=== PATIENT | male | born 1980 | race Caucasian/White ===

== ENCOUNTER 2024-10-18 09:20 | Outpatient (AMB) | payer OTHER, SELFPAY ==
--- NOTE | 2024-10-18 09:22 | A.OFFVIS_ITS ---
Intake Visit Reasons: bilateral vericocele/ epidid. cyst Intake Note: Patient is present for BILATERAL VERICOCELE/EPIDID CYST Urology Medication:NONE Antibiotic Allergy:NONE Blood Thinner:NONE Medical Record Retrieval Specialist Required: No Allergies No Known Allergies Allergy (Verified 10/18/24 09:23) HPI Comments Details: Lucho is a pleasant male. He is a patient Dr. Aranda. He is seen for the following urologic conditions - right epididymal cyst - weak urinary stream with chronic prostatitis Trial alfuzosin Plan right partial epididymectomy Lower urinary tract symptoms Background chronic prostatitis in his 20s Noticing urinary weakness of stream and urge Trial alpha-parveen Right epididymal cyst Ultrasound 2 cm cyst right epididymis with left varicocele Has intermittent pain with epididymal cyst Discomfort on examination with thickening of epididymal head Recommend excision Review of Systems Const Denies chills and Denies fever(s) Card Reports no additional complaints and Denies syncope Resp Denies cough GI Denies abdominal pain and Denies heartburn Reports as per HPI and Denies change in libido Neuro Denies syncope Psych Denies change in libido Endo Denies change in libido Physical Exam Const General: cooperative, healthy appearing, comfortable and no acute distress Orientation/consciousness: patient oriented x3 HEENT Face and sinus: Yes normal facial exam Mouth: moist mucous membranes Neck Neck: Yes normal visual inspection, Yes full ROM and Yes trachea midline Chest Chest palpation & inspection: normal inspection of the chest Resp Effort & Inspection: normal respiratory effort, able to speak in complete sentences and no respiratory distress GI Inspection: Yes normal to inspection Back/Spine/Pelvis Cervical Spine: normal cervical lordosis Thoracic/Lumbar Spine: thoracic and lumbar spine normal to inspection Skin General skin exam: no rashes or lesions noted Neuro General: patient oriented x3, gait normal, tone normal and moves all extremities Extrem General: Yes normal to inspection and Yes capillary refill normal Assessment & Plan Assessment & Plan (1) Epididymal cyst: Code(s): N50.3 - Cyst of epididymis Category: Medical (2) Weak urinary stream: Code(s): R39.12 - Poor urinary stream Category: Medical (3) Urinary urgency: Code(s): R39.15 - Urgency of urination Category: Medical (4) Chronic prostatitis: Code(s): N41.1 - Chronic prostatitis Category: Medical Plan Risks, benefits and alternatives to therapy were discussed. These include but are not limited to infection, bleeding, damage to local organs and tissues, need for further interventions. Anesthetic risks regarding cardiac arrhythmia, blood clots, and potential mortality were discussed. The patient understands the typical recovery time and the outpatient nature of the procedure. After consideration of these risks the patient gives full informed consent and they wish to move ahead with the procedure. Right epididymal cyst removal Medications: New alfuzosin ER 10 mg PO DAILY 30 days 30 tabs 1RF N41.1 - Chronic prostatitis Patient Instructions: This note is constructed using voice recognition software. While every effort has been made to ensure accuracy director of global talent errors may have been included. Imaging studies, laboratory and physical exam results were discussed and reviewed in detail. No major barriers to patient understanding were identified. An opportunity to ask questions regarding the treatment plan was provided. All questions were answered. The patient expressed understanding and agreement with the above treatment plan. The patient is aware they should contact our office by phone for worsening of their current condition or the appearance of new urologic symptoms. Compliance is encouraged with any medications and followup testing that is ordered. It is a privilege to participate in the urologic care of your patient. If you have any questions or concerns regarding treatment for the above conditions, or other urologic issues, please do not hesitate to contact me. The office telephone contact is [phone]. Sincerely, Dr Favian Muniz MD, [facility] - Urology Compassionate Specialist Care for the Genitourinary System Coding Level of Care Code New Pt Level 4 (86112) Diagnoses Epididymal cyst N50.3 Weak urinary stream R39.12 Urinary urgency R39.15 Chronic prostatitis N41.1
== END 2024-10-18 10:05 | disposition home or self-care (01) ==
LOC: HO.HUSH 09:21
PROVIDERS: PCP Internal Medicine; Visit Provider Urology
DX: N50.3 Cyst of epididymis (principal); R39.12 Poor urinary stream; R39.15 Urgency of urination; N41.1 Chronic prostatitis; Z13.9 Encounter for screening, unspecified
CPT/HCPCS: 99204

== ENCOUNTER → 2024-10-18 09:20 | Outpatient (BNVA) | payer OTHER, SELFPAY | PROVIDERS: PCP Internal Medicine; Visit Provider Urology | DX: N50.3 Cyst of epididymis (principal); I86.1 Scrotal varices; N41.1 Chronic prostatitis; R39.12 Poor urinary stream; R39.15 Urgency of urination; Z13.9 Encounter for screening, unspecified | CPT/HCPCS: 81003 ==

== ENCOUNTER → 2024-12-05 11:51 | Outpatient (BNV) | payer OTHER, SELFPAY | PROVIDERS: Visit Provider Urology | DX: N50.3 Cyst of epididymis (principal) | CPT/HCPCS: 54830 ==

== ENCOUNTER → 2024-12-05 11:51 | Day surgery (SDC) | payer OTHER, SELFPAY ==
[2024-12-02 14:56] VITALS: BMI 19.5
[2024-12-05 12:24] VITALS: BP 116/73; PULSE 63; RESP 14; TEMP 36.8; O2SAT 98; BMI 17.9
[2024-12-05] MEDS: Lactated Ringers 1,000 ML 100 ML IVCONT (12:24)
--- NOTE | 2024-12-05 13:40 | P.CONAN_ITS ---
Documented by User: Fior Dailey NP 12/03/24 12:34 HPI - Anesthesia Eval Consult details Narrative: 44yo M for Right Partial removal of epididymectomy Cyst Hx thrombocytopenia. Last platelets WNL 06/2024 from [facility] (lab report on chart) [facility] Active Problems Active Problems: All Active Problems Chronic prostatitis (Acute) Weak urinary stream (Acute) Urinary urgency (Acute) Epididymal cyst (Acute) Past Medical History Medical History Carpal tunnel syndrome Pneumothorax Thrombocytopenia Tobacco dependence Scheuermann kyphosis Chronic low back pain Epididymal cyst Surgical History Surgical History History of esophagogastroduodenoscopy (EGD) Social History Social History (Updated 12/02/24 @ 14:57 by Keyona Storey RN) Are you a primary ocular care technologist to a significant other at home: No Do you presently have visiting nurse or other home services: No Patient Tobacco Use Status: Current everyday Tobacco user Tobacco use type: Smokeless Tobacco Use of substances other than those prescribed or required for medical reasons: Yes Substance Use Type: Marijuana Have you been hit, kicked, punched, or otherwise hurt by someone within the past year? If so, by whom?: No Are you DNR?: No Advance Directives: No Advance Directives Information Provided: Yes Poor oral hygiene: Yes Meds Allergies Allergy/AdvReac Type Severity Reaction Status Date / Time No Known Allergies Allergy Verified 12/05/24 12:14 Exam Height,Weight and Vital Signs: Height 6 ft 1.23 in Weight 67.5 kg Assessment and Plan Assessment Anesthesia Assessment: Chart Reviewed Documented by User: Paris Parker DO 12/05/24 13:57 [facility] Past Medical History Medical History Carpal tunnel syndrome Pneumothorax Thrombocytopenia Tobacco dependence Scheuermann kyphosis Chronic low back pain Epididymal cyst Family History Family history of problems with anesthesia: No Surgical History Surgical History History of esophagogastroduodenoscopy (EGD) History of Problems with Anesthesia: No Social History Social History (Updated 12/02/24 @ 14:57 by Keyona Storey RN) Are you a primary ocular care technologist to a significant other at home: No Do you presently have visiting nurse or other home services: No Patient Tobacco Use Status: Current everyday Tobacco user Tobacco use type: Smokeless Tobacco Use of substances other than those prescribed or required for medical reasons: Yes Substance Use Type: Marijuana Have you been hit, kicked, punched, or otherwise hurt by someone within the past year? If so, by whom?: No Are you DNR?: No Advance Directives: No Advance Directives Information Provided: Yes Poor oral hygiene: Yes Meds Allergies Allergy/AdvReac Type Severity Reaction Status Date / Time No Known Allergies Allergy Verified 12/05/24 12:14 Exam Exam Date and Time: 12/05/24 1340 Height,Weight and Vital Signs: Height 6 ft 1.23 in Weight 67.5 kg Vital Signs Temperature 98.2 F 12/05/24 12:24 Pulse Rate 63 12/05/24 12:24 Respiratory Rate 14 12/05/24 12:24 Blood Pressure 116/73 12/05/24 12:24 Pulse Oximetry 98 12/05/24 12:24 Oxygen Delivery Method Room Air 12/05/24 12:24 Temperature 98.2 F 12/05/24 12:24 Pulse Rate 63 12/05/24 12:24 Respiratory Rate 14 12/05/24 12:24 Blood Pressure 116/73 12/05/24 12:24 Pulse Oximetry 98 12/05/24 12:24 Oxygen Delivery Method Room Air 12/05/24 12:24 Airway Mallampati Class: I TM Dist: >3cm Neck ROM: Full Loose/Missing/Broken Teeth: Yes (multiple missing teeth but nothing loose) Heart: S1S2 Lungs: CTAB Assessment and Plan Assessment Anesthesia Assessment: Anesthesia Plan Discussed and Chart Reviewed Final Anesthetic Review Family History of Problems with Anesthesia: No History of Problems with Anesthesia: No NPO: Yes ASA Class: II Final Preanesthetic Review: No Changes in Pt Med Stat, Meds/Allgs Chart Revi ewed, Consent Obtained/Reviewed and Anes Risks/Benef Reviewed Patient Risk: Low Procedure Risk: Low Anesthetic Plan Anesthetic Plan: GA and Agree w/ Assess. and Plan Disposition: Standard PACU
--- NOTE | 2024-12-05 14:27 | P.HPSUR_ITS ---
Pre-Procedural Eval Section A - 24 Hr Update-Section A only Date of Service: 12/05/24 The patient is an INPATIENT: No Changes since office visit: No Cold of Flu in the past 2 weeks, No New Medical Problems, No Changes in Medication and No Patient answered all questions The patient has been examined within 24 hours of the surgical procedure. The History & Physical has been completed within 30 days and I have reviewed it.: Yes Section B - Complete if H&P > 30 days Chief Complaint: Cyst of epididymis Details of Present Illness: Right epididymal cyst removal Relevant Family History (Specify if Yes): No Relevant Social History: None Present Medications: see Short Stay Collaborative assessment Medical History: No relevant PMH History of Previous Operations: No relevant previous surgery Allergies: Allergies Allergy/AdvReac Type Severity Reaction Status Date / Time No Known Allergies Allergy Verified 12/05/24 12:14 Review of Systems Sugical H&P ROS: Negative: Constitution, Cardiovascular, Respiratory, Neurological, Psychiatric, Hem-Onc, Allergic/Immunologic, Gastrointestinal, Genitourinary, Musculoskeletal, Integumentary, Endocrine and Eyes/Ears/Nose/Th roat Exam Surgical H&P Exam: Normal: HEENT, Normal: Heart, Normal: Lungs, Normal: Extremities, Normal: Abdomen, Normal: Skin and Normal: Neurological Plan Diagnosis/Plan: Unchanged (Right epididymal cyst removal) I have reviewed the history and physical and performed a pertinent physical examination on my patient. No changes have occurred unless specified. Time Spent With Patient Time: Total time managing care of this patient today ____ minutes.
--- NOTE | 2024-12-05 15:33 | W.PM.OPN ---
Operative Note Operative Note Date of Service: 12/05/24 Narrative: PreOperative Diagnosis: Right epididymal cyst Post Operative Diagnosis: Right epididymal cyst Procedure: Right epididymal cyst removal Surgeon: Dr Favian Muniz Anesthesia: General Indications for procedure: Right epididymal cyst/spermatocele with persistent discomfort Procedure: After informed consent was verified the patient was brought to the operating room and placed in a supine position. Anesthesia was administered per protocol. Patient was appropriately shaved and genitals were prepped and draped in sterile fashion. Safety pause time-out was performed. Antibiotics being given. Local anesthetic was infiltrated under the skin in a horizontal fashion on the scrotum. Skin incision was made using a blade through the subdermal layer. The tunica around the testicle was elevated and dissected free from surrounding tissue. A small incision was made through the tunic. Edges were held using Allis clamps. Fluid was removed. The testicle was delivered from the tunic. The spermatocele was seen within the epididymis of the testicle. Using Bovie cautery spermatocele was carefully dissected free from attachments to the upper pole of the testicle and the epididymis. Once free the stalk of the spermatocele was identified and cauterized. Fluid was removed from the spermatocele and the empty spermatocele sac was removed. Small accessory appendices were removed from the head of epididymis. The testicle was placed back within tunica inside the scrotum. The tunica was closed using a running 3-0 Vicryl suture. Overlying tissue was reapproximated using a running 3-0 Vicryl suture. Skin was closed with interrupted 4-0 chromic sutures. Soft fluff sponges were placed with mesh pants as dressing. Local anesthetic was placed in inguinal cord for post procedure pain relief. Patient tolerated procedure well was extubated in operating room transferred in stable condition to the recovery area Pathology: Spermatocele sac Drains: []
[2024-12-05 15:35] VITALS: BP 118/79; PULSE 52; RESP 16; TEMP 36.6; O2SAT 100
[2024-12-05 15:40] VITALS: BP 120/74; PULSE 54; RESP 16; O2SAT 100
[2024-12-05 15:45] VITALS: BP 122/80; PULSE 58; RESP 16; O2SAT 100
[2024-12-05 15:50] VITALS: BP 129/81; PULSE 57; RESP 16; TEMP 36.6; O2SAT 100
== END | disposition home or self-care (01) ==
PROVIDERS: Visit Provider Urology
PROC: (CPT 54830; principal; 2024-12-05 14:40)
DX: N50.3 Cyst of epididymis (principal); R39.12 Poor urinary stream; R39.15 Urgency of urination; N41.1 Chronic prostatitis; G89.29 Other chronic pain; M54.50 Low back pain, unspecified; Z72.0 Tobacco use; Z79.899 Other long term (current) drug therapy
CPT/HCPCS: 54830; 88304; J0131; J0690; J1100; J2003; J2250; J2405; J2704; J2795; J3010

== ENCOUNTER 2025-01-22 14:49 | Outpatient (AMB) | payer OTHER, SELFPAY ==
--- NOTE | 2025-01-22 14:59 | A.OFFVIS_ITS ---
Intake Visit Reasons: post-op appt Intake Note: Patient is present for Post-Op Urology Medication:Alfuzosin Antibiotic Allergy:NONE Blood Thinner:NONE Assistant Quality Manager Required: No Accompanied by: Self / Same As Patient Allergies No Known Allergies Allergy (Verified 01/22/25 15:00) HPI Comments Details: Lucho is a pleasant male. He is a patient Dr. Aranda. He is seen for the following urologic conditions - right epididymal cyst - weak urinary stream with chronic prostatitis Doing well with alfuzosin Effective stream greater than 24 in Right epididymal cyst removed. Healing well Minimal discomfort Lower urinary tract symptoms Background chronic prostatitis in his 20s Noticing urinary weakness of stream and urge Trial alpha-parveen Right epididymal cyst Ultrasound 2 cm cyst right epididymis with left varicocele Has intermittent pain with epididymal cyst Discomfort on examination with thickening of epididymal head Excision right epididymal cyst 12/[facility] Medical History Carpal tunnel syndrome Pneumothorax Thrombocytopenia Tobacco dependence Scheuermann kyphosis Chronic low back pain Epididymal cyst Surgical History History of esophagogastroduodenoscopy (EGD) Social History (Updated 12/02/24 @ 14:57 by Keyona Storey RN) Are you a primary senior resident care director to a significant other at home: No Do you presently have visiting nurse or other home services: No Patient Tobacco Use Status: Current everyday Tobacco user Tobacco use type: Smokeless Tobacco Substance Use Type: Marijuana Review of Systems Const Denies chills and Denies fever(s) Card Reports no additional complaints and Denies syncope Resp Denies cough GI Denies abdominal pain and Denies heartburn Reports as per HPI and Denies change in libido Neuro Denies syncope Psych Denies change in libido Endo Denies change in libido Physical Exam Const General: cooperative, healthy appearing, comfortable and no acute distress Orientation/consciousness: patient oriented x3 HEENT Face and sinus: Yes normal facial exam Mouth: moist mucous membranes Neck Neck: Yes normal visual inspection, Yes full ROM and Yes trachea midline Chest Chest palpation & inspection: normal inspection of the chest Resp Effort & Inspection: normal respiratory effort, able to speak in complete sentences and no respiratory distress GI Inspection: Yes normal to inspection Back/Spine/Pelvis Cervical Spine: normal cervical lordosis Thoracic/Lumbar Spine: thoracic and lumbar spine normal to inspection Skin General skin exam: no rashes or lesions noted Neuro General: patient oriented x3, gait normal, tone normal and moves all extremities Extrem General: Yes normal to inspection and Yes capillary refill normal Assessment & Plan Assessment & Plan (1) Urinary urgency: Code(s): R39.15 - Urgency of urination Category: Medical (2) Weak urinary stream: Code(s): R39.12 - Poor urinary stream Category: Medical (3) Epididymal cyst: Code(s): N50.3 - Cyst of epididymis Category: Medical Plan Six-month follow-up continue alfuzosin Medications: Refilled alfuzosin ER 10 mg PO DAILY 90 tabs 1RF 90 days N41.1 - Chronic prostatitis Patient Instructions: This note is constructed using voice recognition software. While every effort has been made to ensure accuracy drive shaft and steering post repairer errors may have been included. Imaging studies, laboratory and physical exam results were discussed and reviewe d in detail. No major barriers to patient understanding were identified. An opportunity to ask questions regarding the treatment plan was provided. All questions were answered. The patient expressed understanding and agreement with the above treatment plan. The patient is aware they should contact our office by phone for worsening of their current condition or the appearance of new urologic symptoms. Compliance is encouraged with any medications and followup testing that is ordered. It is a privilege to participate in the urologic care of your patient. If you have any questions or concerns regarding treatment for the above conditions, or other urologic issues, please do not hesitate to contact me. The office telephone contact is [phone]. Sincerely, Dr Favian Muniz MD, [facility] - Urology Compassionate Specialist Care for the Genitourinary System Coding Level of Care Code Est Pt Level 3 (46497) Diagnoses Urinary urgency R39.15 Weak urinary stream R39.12 Epididymal cyst N50.3
== END 2025-01-22 15:25 | disposition home or self-care (01) ==
LOC: HO.HUSH 14:50
PROVIDERS: Visit Provider Urology
DX: R39.15 Urgency of urination (principal); R39.12 Poor urinary stream; N50.3 Cyst of epididymis
CPT/HCPCS: 99024